=== PATIENT | male | born 1970 | race Caucasian/White ===

== ENCOUNTER 2021-12-10 10:42 | Emergency (ER) | payer MEDICAID ==
[2021-12-10 11:32] LABS: BASOPHIL 0.4 % (0-2); EOSINOPHIL 17.4 % (0-5); HCT 42.9 % (42.0-52.0); LYMPHOCYTE 12.8 % (15-48); MCH 25.4 pg (25.0-31.0); MCHC 30.3 g/dL (32.0-36.0); MCV 83.8 fL (78.0-100.0); MONOCYTE 4.4 % (0-12); MPV 10.3 fL (6.0-9.5); NEUTROPHIL 64.7 % (41-80); NRBC 0; PLT 237 K/uL (150-400); RBC 5.12 M/uL (4.70-6.00); WBC 7.8 K/uL (4.0-10.5)
[2021-12-10 11:55] LABS: INR 1.3 (0.9-1.2); PROTHROMBIN TIME 15.5 SECONDS (11.8-13.4); PTT 30.3 SECONDS (24.4-34.7)
[2021-12-10 12:06] LABS: ALBUMIN 3.1 g/dL (3.4-5.0); BILIRUBIN - TOTAL 1.3 mg/dL (0.2-1.0); BUN/CREAT RATIO (CALC) 14.1 RATIO; CREATININE 0.92 mg/dL (0.67-1.17); GLOBULIN (CALCULATION) 3.8 g/dL; POTASSIUM 3.8 mmol/L (3.5-5.1); TOTAL PROTEIN 6.9 g/dL (6.4-8.2)
== END 2021-12-10 21:59 | disposition other institution (70) ==
LOC: FER 10:42
PROVIDERS: Emergency Medicine
DX: I11.0 Hypertensive heart disease with heart failure (principal); I50.811 Acute right heart failure; I50.82 Biventricular heart failure; Z28.310 Unvaccinated for COVID-19
CPT/HCPCS: 36415; 71045; 80053; 83880; 84484; 85025; 85610; 85730; 93005